=== PATIENT | female | born 1945 ===

== ENCOUNTER 2017-08-04 04:50 | Day surgery (SDC) | payer OTHER ==
[~2017-08-04 04:50] MED LIST: AMARIL PO; ASA81 MG PO; AVALIDE 300-121 EACH PO; GABAPENTIN300 MG PO; METFORMIN HCL500 MG PO; NORVASC5 MG PO; PEPCID AC20 MG PO; ZOCOR5 MG PO
[2017-08-04] MEDS ORDERED: MACROBID 100 M100 MG PO (10:29)
[2017-08-04] MEDS ORDERED: ULTRACET PO (10:29)
== END 2017-08-04 12:00 | disposition home or self-care (01) ==
LOC: CIR.AMB 04:50
DX: N81.3 Complete uterovaginal prolapse (principal)